=== PATIENT | female | born 1980 | race Caucasian/White ===

== ENCOUNTER 2016-04-15 12:19 | Emergency (ER) | payer OTHER ==
[~2016-04-15] VITALS: Ht 175.3 cm; Wt 95.0 kg
[~2016-04-15 12:19] MED LIST: AZITHROMYCIN250 MG PO; BENZONATATE100 MG PO; CEFADROXIL1 GM PO; DIFLUCAN150 MG PO; HYDROXYZINE HCL10 MG PO; LEVETIRACETAM500 MG PO; LUNESTA3 MG PO; METAXALONE800 MG PO; MOTRIN800 MG PO; MYCOSTATIN 100,60 ML PO; NOHOMEMEDS; NORCO 5/3251 TABLET PO; OMEPRAZOLE40 M1 PO; OXYCODONE HCL5 MG PO; OXYCODONE-APAP1 EAC6 PO; PERCOCET 5/31 TABLET PO; PREDNISONE10 MG PO; RANITIDINE HCL150 MG PO; ZOFRAN4 MG PO; ZOLPIDEM TARTRA10 MG PO
[2016-04-15 12:38] VITALS: BP 112/72
[2016-04-15] MEDS ORDERED: SKELAXIN800 MG PO (14:45)
== END 2016-04-15 16:10 | disposition left against medical advice (07) ==
LOC: EME 12:19 → RME 12:19
DX: S16.1XXA Strain of muscle, fascia and tendon at neck level, initial encounter (principal); V99.XXXA Unspecified transport accident, initial encounter; Y92.481 Parking lot as the place of occurrence of the external cause
CPT/HCPCS: 72040; 99281; 99283

== ENCOUNTER 2016-05-16 02:03 | Emergency (ER) | payer OTHER ==
[~2016-05-16] VITALS: Ht 175.3 cm; Wt 105.0 kg
[~2016-05-16 02:03] MED LIST changes: +SKELAXIN800 MG PO
[2016-05-16 03:00] VITALS: BP 124/71
== END 2016-05-16 03:00 | disposition home or self-care (01) ==
LOC: EME → EDBD 02:03 → EME 03:00
DX: G40.909 Epilepsy, unspecified, not intractable, without status epilepticus (principal); R51 Headache; F17.200 Nicotine dependence, unspecified, uncomplicated
CPT/HCPCS: 70450; 99281; 99285; J2250

== ENCOUNTER 2016-07-01 22:24 | Emergency (ER) | payer OTHER ==
[~2016-07-01] VITALS: Ht 175.3 cm; Wt 97.0 kg
[2016-07-02 01:04] VITALS: BP 111/69
== END 2016-07-02 01:06 | disposition home or self-care (01) ==
LOC: EME → EDBD 22:24 → EME 22:24
DX: G40.909 Epilepsy, unspecified, not intractable, without status epilepticus (principal); Z91.14 Patient's other noncompliance with medication regimen; F17.200 Nicotine dependence, unspecified, uncomplicated
CPT/HCPCS: 93005; 99281; 99285; J1953; J2250; J7050

== ENCOUNTER 2016-08-15 23:11 | Emergency (ER) | payer OTHER ==
[~2016-08-15] VITALS: Ht 175.3 cm; Wt 91.5 kg
[2016-08-15 23:51] LABS: HEMATOCRIT 40.6 % (36.0-46.0); MCH 28.1 PG (29.0-34.0); MCHC 33.3 G/DL (30.0-36.0); MCV 84.6 FL (83-99); MEAN PLAT.VOLUME 10.9 uM^3 (9.5-12.4); PLATELET COUNT 192 K/uL (156-360); RBC DIS.WIDTH-CV 12.8 % (11.8-14.6); RBC DIS.WIDTH-SD 38.8 % (39-53); WHITE BLOOD COUNT 5.4 K/uL (4.1-10.2)
[2016-08-16 00:03] LABS: CHLORIDE 100 mEq/L (99-109); POTASSIUM 3.4 mEq/L (3.7-5.4); SODIUM 139 mEq/L (136-147)
[2016-08-16 00:05] LABS: GLUCOSE 132 mg/dL (70-99)
[2016-08-16 00:06] LABS: ANION GAP 11 MEQ/L (2-14)
[2016-08-16 00:09] LABS: GFR ESTIMATE (CALCULATED) > 59 mL/min/
[2016-08-16 00:10] LABS: UREA NITROGEN (BUN) 7 mg/dL (9-23)
[2016-08-16 00:17] LABS: QUANTITATIVE HCG < 4.0 MIU/ML
[2016-08-16 00:36] LABS: ADD MIUA? YES; BILIRUBIN NEGATIVE; BLOOD SMALL; COLOR YELLOW ((YELLOW)); GLUCOSE (STRIP) NEGATIVE; KETONES NEGATIVE; LEUKOCYTES NEGATIVE; NITRITE NEGATIVE; PROTEIN (STRIP) NEGATIVE; UROBILINOGEN 0.2 MG/DL (0.2-1.0)
[2016-08-16 00:49] LABS: BACTERIA NONE SEEN /HPF; EPITHELIAL CELLS RARE /HPF; MUCUS NONE SEEN /LPF; RED BLOOD CELLS 0-5 /HPF (0-5); UCUL ADDED? NO; WHITE BLOOD CELLS 0-5 /HPF (0-5)
[2016-08-16 01:58] VITALS: BP 114/74
== END 2016-08-16 02:02 | disposition left against medical advice (07) ==
LOC: EME → EDBD 23:11 → EME 08-16 02:02
PROVIDERS: Emergency Medicine
DX: R56.9 Unspecified convulsions (principal); Z72.820 Sleep deprivation; F17.200 Nicotine dependence, unspecified, uncomplicated
CPT/HCPCS: 80048; 80164; 81003; 84702; 85027; 99281; 99283; J1885

== ENCOUNTER → 2016-09-06 | Emergency (ER) | payer OTHER ==
[~2016-09-06] VITALS: Ht 175.3 cm; Wt 97.0 kg
[~2016-09-06] MED LIST changes: +CUTIVATE 0.005%60 GM TP; +DEPAKOTE ER250 MG PO; +HYDROCHLOROTHIA25 MG PO; +KLONOPIN2 MG PO; +KLOR-CON M2020 MEQ PO; +LAMICTAL25 MG PO; +METHOCARBAMOL500 MG PO; +PERCOCET 10/1 TABLET PO; +VENTOLIN HFA18 GM IH
[2016-09-06 19:39] VITALS: BP 107/66
[2016-09-06 20:01] LABS: BILIRUBIN NEGATIVE; BLOOD NEGATIVE; COLOR YELLOW ((YELLOW)); GLUCOSE (STRIP) NEGATIVE; KETONES NEGATIVE; LEUKOCYTES NEGATIVE; NITRITE NEGATIVE; PROTEIN (STRIP) NEGATIVE; SPECIFIC GRAVITY 1.012 (1.000-1.030); UROBILINOGEN 0.2 MG/DL (0.2-1.0)
[2016-09-06 20:05] LABS: ADD MIUA? NO; UCUL ADDED? NO
[2016-09-06 20:18] LABS: HEMATOCRIT 37.8 % (36.0-46.0); MCH 28.2 PG (29.0-34.0); MCHC 32.5 G/DL (30.0-36.0); MCV 86.7 FL (83-99); MEAN PLAT.VOLUME 11.3 uM^3 (9.5-12.4); PLATELET COUNT 171 K/uL (156-360); RBC DIS.WIDTH-CV 13.2 % (11.8-14.6); RBC DIS.WIDTH-SD 41.4 % (39-53); RED BLOOD COUNT 4.36 M/uL (3.80-5.20); WHITE BLOOD COUNT 6.1 K/uL (4.1-10.2)
[2016-09-06 20:31] LABS: CHLORIDE 107 mEq/L (99-109); POTASSIUM 3.4 mEq/L (3.7-5.4); SODIUM 139 mEq/L (136-147)
[2016-09-06 20:32] LABS: GLUCOSE 95 mg/dL (70-99)
[2016-09-06 20:34] LABS: ANION GAP 7 MEQ/L (2-14)
[2016-09-06 20:36] LABS: GFR ESTIMATE (CALCULATED) > 59 mL/min/
[2016-09-06 20:37] LABS: UREA NITROGEN (BUN) 12 mg/dL (9-23)
[2016-09-06 20:49] LABS: SAMPLE HEMOLYSIS CHECK 0; SAMPLE ICTERIC CHECK 0; SAMPLE LIPEMIA CHECK 0
== END | disposition left against medical advice (07) ==
LOC: EME → EDBD 19:32 → EME 22:03 → EDOF 22:03
PROVIDERS: Emergency Medicine
DX: G40.909 Epilepsy, unspecified, not intractable, without status epilepticus (principal); R51 Headache; R11.2 Nausea with vomiting, unspecified; F17.200 Nicotine dependence, unspecified, uncomplicated
CPT/HCPCS: 71010; 80048; 80164; 81003; 85027; 93005; 99281; 99284; J1953; J2060; J2250; J7030; J7050

== ENCOUNTER 2016-09-12 16:26 | Emergency (ER) | payer OTHER ==
[~2016-09-12] VITALS: Ht 175.3 cm; Wt 97.0 kg
[2016-09-12 17:09] LABS: ADD MIUA? YES; BILIRUBIN NEGATIVE; BLOOD LARGE; COLOR STRAW ((YELLOW)); GLUCOSE (STRIP) NEGATIVE; KETONES NEGATIVE; LEUKOCYTES NEGATIVE; NITRITE NEGATIVE; PROTEIN (STRIP) NEGATIVE; SPECIFIC GRAVITY 1.003 (1.000-1.030); UROBILINOGEN 0.2 MG/DL (0.2-1.0)
[2016-09-12 17:12] LABS: HEMATOCRIT 37.8 % (36.0-46.0); MCHC 32.3 G/DL (30.0-36.0); MCV 86.7 FL (83-99); MEAN PLAT.VOLUME 10.6 uM^3 (9.5-12.4); PLATELET COUNT 188 K/uL (156-360); RBC DIS.WIDTH-CV 13.2 % (11.8-14.6); RBC DIS.WIDTH-SD 41.1 % (39-53); RED BLOOD COUNT 4.36 M/uL (3.80-5.20); WHITE BLOOD COUNT 5.9 K/uL (4.1-10.2)
[2016-09-12 17:18] LABS: INTERNAL CONTROL VALID? YES
[2016-09-12 17:21] LABS: AMPHETAMINE NEGATIVE (500 ng/mL); BARBITURATES NEGATIVE (200 ng/mL); BENZODIAZEPINES NEGATIVE (150 ng/mL); COCAINE NEGATIVE (150 ng/mL); INTERNAL CONTROLS VALID? YES; METHADONE NEGATIVE (200 ng/mL); METHAMPHETAMINE NEGATIVE (500 ng/mL); OPIATES (MORPHINE) NEGATIVE (100 ng/mL); OXYCODONE PRESUMPTIVE POSITIVE (100 ng/mL); PHENCYCLIDINE NEGATIVE (25 ng/mL); PROPOXYPHENE NEGATIVE (300 ng/mL); THC CANNABINOIDS NEGATIVE (50 ng/mL); TRICYCLIC ANTIDEPRESSANTS NEGATIVE (300 ng/mL)
[2016-09-12 17:22] LABS: BACTERIA RARE /HPF; EPITHELIAL CELLS RARE /HPF; MUCUS NONE SEEN /LPF; RED BLOOD CELLS 0-5 /HPF (0-5); UCUL ADDED? NO; WHITE BLOOD CELLS 0-5 /HPF (0-5)
[2016-09-12 17:49] LABS: CHLORIDE 110 mEq/L (99-109); POTASSIUM 3.5 mEq/L (3.7-5.4); SODIUM 140 mEq/L (136-147)
[2016-09-12 17:51] LABS: GLUCOSE 82 mg/dL (70-99)
[2016-09-12 17:52] LABS: ANION GAP 7 MEQ/L (2-14)
[2016-09-12 17:55] LABS: GFR ESTIMATE (CALCULATED) > 59 mL/min/
[2016-09-12 17:56] LABS: UREA NITROGEN (BUN) 8 mg/dL (9-23)
[2016-09-12 18:22] VITALS: BP 107/74
== END 2016-09-12 19:24 | disposition left against medical advice (07) ==
LOC: EME 16:26
PROVIDERS: Emergency Medicine
DX: G40.909 Epilepsy, unspecified, not intractable, without status epilepticus (principal); Z79.899 Other long term (current) drug therapy; F11.10 Opioid abuse, uncomplicated; F32.9 Major depressive disorder, single episode, unspecified; F17.200 Nicotine dependence, unspecified, uncomplicated
CPT/HCPCS: 80048; 80164; 81003; 84703; 85027; 99281; 99284; J2060

== ENCOUNTER 2016-09-17 16:23 | Emergency (ER) | payer OTHER ==
[~2016-09-17] VITALS: Ht 175.3 cm; Wt 98.5 kg
[2016-09-17 16:41] LABS: POINT-OF-CARE METER ID UU13113702
[2016-09-17 16:50] LABS: MCH 28.5 PG (29.0-34.0); MCV 86.4 FL (83-99); MEAN PLAT.VOLUME 10.4 uM^3 (9.5-12.4); PLATELET COUNT 177 K/uL (156-360); RBC DIS.WIDTH-CV 13.3 % (11.8-14.6); RED BLOOD COUNT 4.28 M/uL (3.80-5.20); WHITE BLOOD COUNT 4.3 K/uL (4.1-10.2)
[2016-09-17 17:01] LABS: CHLORIDE 112 mEq/L (99-109); POTASSIUM 3.3 mEq/L (3.7-5.4); SODIUM 143 mEq/L (136-147)
[2016-09-17 17:03] LABS: GLUCOSE 93 mg/dL (70-99)
[2016-09-17 17:04] LABS: ANION GAP 8 MEQ/L (2-14)
[2016-09-17 17:05] LABS: TOTAL BILIRUBIN 0.4 mg/dL (0.0-1.0)
[2016-09-17 17:06] LABS: SERUM ETHYL ALCOHOL < 10 mg/dL
[2016-09-17 17:07] LABS: ALKALINE PHOSPHATASE 53 IU/L (3-129); GFR ESTIMATE (CALCULATED) > 59 mL/min/
[2016-09-17 17:08] LABS: UREA NITROGEN (BUN) 6 mg/dL (9-23)
[2016-09-17 18:43] LABS: ADD MIUA? YES; BILIRUBIN NEGATIVE; BLOOD SMALL; COLOR STRAW ((YELLOW)); GLUCOSE (STRIP) NEGATIVE; KETONES NEGATIVE; LEUKOCYTES NEGATIVE; NITRITE NEGATIVE; PROTEIN (STRIP) NEGATIVE; SPECIFIC GRAVITY 1.005 (1.000-1.030); UROBILINOGEN 0.2 MG/DL (0.2-1.0)
[2016-09-17 18:46] LABS: BACTERIA RARE /HPF; EPITHELIAL CELLS RARE /HPF; MUCUS TRACE /LPF; RED BLOOD CELLS 0-5 /HPF (0-5); UCUL ADDED? NO; WHITE BLOOD CELLS 0-5 /HPF (0-5)
[2016-09-17 18:55] LABS: AMPHETAMINE NEGATIVE (500 ng/mL); BARBITURATES NEGATIVE (200 ng/mL); BENZODIAZEPINES NEGATIVE (150 ng/mL); COCAINE NEGATIVE (150 ng/mL); INTERNAL CONTROLS VALID? YES; METHADONE NEGATIVE (200 ng/mL); METHAMPHETAMINE NEGATIVE (500 ng/mL); OPIATES (MORPHINE) NEGATIVE (100 ng/mL); OXYCODONE PRESUMPTIVE POSITIVE (100 ng/mL); PHENCYCLIDINE NEGATIVE (25 ng/mL); PROPOXYPHENE NEGATIVE (300 ng/mL); THC CANNABINOIDS NEGATIVE (50 ng/mL); TRICYCLIC ANTIDEPRESSANTS NEGATIVE (300 ng/mL)
[2016-09-17 19:00] VITALS: BP 106/74
[2016-09-17 19:37] LABS: SAMPLE HEMOLYSIS CHECK 0; SAMPLE ICTERIC CHECK 0; SAMPLE LIPEMIA CHECK 0
== END 2016-09-17 20:09 | disposition left against medical advice (07) ==
LOC: EME 16:23
PROVIDERS: Emergency Medicine
DX: F44.5 Conversion disorder with seizures or convulsions (principal); F25.9 Schizoaffective disorder, unspecified; F32.9 Major depressive disorder, single episode, unspecified; F17.200 Nicotine dependence, unspecified, uncomplicated
CPT/HCPCS: 80053; 80164; 81003; 82948; 85027; 99281; 99285; G0480; J1630; J7030

== ENCOUNTER 2017-01-05 17:38 | Emergency (ER) | payer SELFPAY ==
[~2017-01-05] VITALS: Ht 175.3 cm; Wt 95.9 kg
[2017-01-05 18:16] LABS: EOSINOPHIL (%) 2.1 % (0-5); EOSINOPHIL COUNT 0.1 K/uL (0-0.3); IMMATURE GRANULOCYTE (%) 0.3 % (0.0-0.7); INSTRUMENT ABS NEUTROPHIL CT 3.5 K/uL; LYMPHOCYTE COUNT 1.8 K/uL (1.0-2.8); MCH 28.7 PG (29.0-34.0); MCHC 32.8 G/DL (30.0-36.0); MCV 87.4 FL (83-99); MEAN PLAT.VOLUME 10.5 uM^3 (9.5-12.4); MONOCYTE (%) 5.2 % (3-12); MONOCYTE COUNT 0.3 K/uL (0-0.8); NEUTROPHIL (%) 60.8 % (45-76); NEUTROPHIL COUNT 3.5 K/uL (1.8-6.4); PLATELET COUNT 176 K/uL (156-360); RBC DIS.WIDTH-CV 12.4 % (11.8-14.6); RED BLOOD COUNT 4.46 M/uL (3.80-5.20); WHITE BLOOD COUNT 5.8 K/uL (4.1-10.2)
[2017-01-05 18:23] LABS: CHLORIDE 107 mEq/L (99-109); POTASSIUM 3.8 mEq/L (3.7-5.4); SODIUM 140 mEq/L (136-147)
[2017-01-05 18:25] LABS: GLUCOSE 105 mg/dL (70-99)
[2017-01-05 18:26] LABS: ANION GAP 8 MEQ/L (2-14)
[2017-01-05 18:28] LABS: GFR ESTIMATE (CALCULATED) > 59 mL/min/
[2017-01-05 18:29] LABS: UREA NITROGEN (BUN) 9 mg/dL (9-23)
[2017-01-05 18:34] LABS: ADD MIUA? NO; BILIRUBIN NEGATIVE; BLOOD NEGATIVE; COLOR YELLOW ((YELLOW)); GLUCOSE (STRIP) NEGATIVE; KETONES NEGATIVE; LEUKOCYTES NEGATIVE; NITRITE NEGATIVE; PROTEIN (STRIP) NEGATIVE; SPECIFIC GRAVITY 1.008 (1.000-1.030); UCUL ADDED? NO; UROBILINOGEN 0.2 MG/DL (0.2-1.0)
[2017-01-05 20:33] VITALS: BP 120/67
== END 2017-01-05 20:35 | disposition left against medical advice (07) ==
LOC: EME 17:38
PROVIDERS: Emergency Medicine
DX: R33.9 Retention of urine, unspecified (principal); R30.0 Dysuria; M25.473 Effusion, unspecified ankle; F17.200 Nicotine dependence, unspecified, uncomplicated
CPT/HCPCS: 80048; 81003; 85025; 99281; 99283